=== PATIENT | male | born 1995 | race Caucasian/White ===

== ENCOUNTER 2017-12-13 10:54 | Emergency (ER) | payer SELFPAY ==
[~2017-12-13] VITALS: Ht 182.9 cm; Wt 87.0 kg
[~2017-12-13 10:54] MED LIST: ONDA4TAB10 PO; TAMS-11 PO
[2017-12-13 10:57] VITALS: BP 125/80
[2017-12-13] MEDS ORDERED: BACITRACIN ZINC OINT 500U/GM, 0.9 GM ONE (12:30)
== END 2017-12-13 12:49 | disposition home or self-care (01) ==
LOC: ED 11:45
DX: S92.352A Displaced fracture of fifth metatarsal bone, left foot, initial encounter for closed fracture (principal); W19.XXXA Unspecified fall, initial encounter; Y93.89 Activity, other specified; Y99.8 Other external cause status; Y92.009 Unspecified place in unspecified non-institutional (private) residence as the place of occurrence of the external cause
CPT/HCPCS: 99284